=== PATIENT | male | born 1970 | race Caucasian/White ===

== ENCOUNTER 2019-05-22 22:55 | Emergency (ER) | payer BC ==
[2019-05-22 23:06] VITALS: BP 134/92; PULSE 72; TEMP 98.3; BMI 27.3
--- NOTE | 2019-05-22 23:28 | PDOC ---
History of Present Illness - General Chief Complaint: Foreign Body (FB) Stated Complaint: Q-TIP IN RIGHT EAR Time Seen by Provider: 05/22/19 23:23 - History of Present Illness Initial Comments: 05/23/19 06:33 q tip in l ear Timing/Duration: 1-3 hours Severity: mild Past History - Past Medical History Allergies/Adverse Reactions: Allergies Allergy/AdvReac Type Severity Reaction Status Date / Time ibuprofen Allergy Verified 05/22/19 23:06 Home Medications: Ambulatory Orders Simvastatin [Zocor] 20 mg PO HS 05/22/19 COPD: No Hypercholesterolemia: Yes - Psycho Social/Smoking Cessation Hx Smoking History: Former smoker Have you smoked in the past 12 months: No Information on smoking cessation initiated: No Hx Alcohol Use: No Drug/Substance Use Hx: No Review of Systems - Review of Systems All Other Systems: Reviewed and Negative *Physical Exam - Vital Signs Last Vital Signs Temp Pulse Resp BP Pulse Ox 98.3 F 72 16 134/92 100 05/22/19 22:58 05/22/19 22:58 05/22/19 22:58 05/22/19 22:58 05/22/19 22:58 - Physical Exam General Appearance: Yes: Nourished, Appropriately Dressed HEENT: positive: Other (q tip in l external canal) Medical Decision Making - Medical Decision Making 05/23/19 06:33 q tip removed with suction Discharge - Discharge Information Problems reviewed: Yes Clinical Impression/Diagnosis: Foreign body in ear Qualifiers: Encounter type: initial encounter Laterality: left Qualified Code(s): T16.2XXA - Foreign body in left ear, initial encounter Condition: Stable Disposition: HOME - Admission No - Follow up/Referral - Patient Discharge Instructions Additional Instructions: please followup with your doctor if you have any pain in the ear. avoid using q tips - Post Discharge Activity
== END 2019-05-22 23:37 | disposition home or self-care (01) ==
LOC: FER 22:55
DX: T16.1XXA Foreign body in right ear, initial encounter (principal); E78.00 Pure hypercholesterolemia, unspecified; Z88.8 Allergy status to other drugs, medicaments and biological substances; Z87.891 Personal history of nicotine dependence
CPT/HCPCS: 99281-25

== ENCOUNTER 2021-03-09 20:19 | Emergency (ER) | payer BC ==
[2021-03-09 20:51] VITALS: BP 150/80; PULSE 80; TEMP 98.5; BMI 28.1
== END 2021-03-09 21:56 | disposition home or self-care (01) ==
LOC: FER 20:19
DX: S09.90XA Unspecified injury of head, initial encounter (principal); S70.12XA Contusion of left thigh, initial encounter; W18.2XXA Fall in (into) shower or empty bathtub, initial encounter
CPT/HCPCS: 70450-TC; 70486-TC; 72125-TC; 99285-25